=== PATIENT | female | born 1965 | race Asian ===

== ENCOUNTER 2016-05-30 06:16 | Day surgery (SDC) | payer MEDICAID ==
[~2016-05-30] VITALS: Ht 163.8 cm; Wt 57.7 kg
[~2016-05-30 06:16] MED LIST: PROPOFOL 1% 20 ML VIAL IVP ONE
[2016-05-30] MEDS ORDERED: SODIUM CHLORIDE 0.9% 1,000 ML IV ONE ×2 (06:30→07:04)
== END 2016-05-30 09:20 | disposition home or self-care (01) ==
LOC: SURGERY 06:16 → EDSEX 06:16 → SURGERY 09:20
PROVIDERS: ATTEND Specialist
DX: Z12.11 Encounter for screening for malignant neoplasm of colon (principal); K64.0 First degree hemorrhoids; K57.30 Diverticulosis of large intestine without perforation or abscess without bleeding; M54.9 Dorsalgia, unspecified; Z98.890 Other specified postprocedural states
CPT/HCPCS: 45378; J2704; J7030